=== PATIENT | male | born 1965 | race African-American/Black ===

== ENCOUNTER 2016-11-17 12:33 | Emergency (ER) | payer OTHER, MEDICARE ==
--- NOTE | 2016-11-17 13:44 | ER Document Report ---
ED Medical Screen (RME) - General Chief Complaint: High Blood Pressure Stated Complaint: BLOOD PRESSURE PROBLEMS Time Seen by Provider: 11/17/16 13:42 Mode of Arrival: Ambulatory Information source: Patient Notes: This is a 51-year-old male with a history of hypertension who presents with high blood pressure. He states that his tele-nurse called him regarding his blood pressure readings today and told him to come to the ER for evaluation. He is on multiple antihypertensive medications and reports compliance with these. He denies any chest pain or shortness of breath. No headache. No vision changes. I have greeted and performed a rapid initial assessment of this patient. A comprehensive ED assessment and evaluation of the patient, analysis of test results and completion of the medical decision making process will be conducted by additional ED providers. TRAVEL OUTSIDE OF THE [place] IN LAST 30 DAYS: No - Related Data Allergies/Adverse Reactions: No Known Allergies Allergy (Verified 11/17/16 12:41) Past Medical History - Social History Chew tobacco use (# tins/day): No Frequency of alcohol use: None Drug Abuse: None - Past Medical History Cardiac Medical History: Reports: Hx Congestive Heart Failure, Hx Hypercholesterolemia, Hx Hypertension Pulmonary Medical History: Reports: Hx Bronchitis, Hx Pneumonia Neurological Medical History: Reports: Hx Migraine Endocrine Medical History: Reports: Hx Diabetes Mellitus Type 2 Renal/ Medical History: Denies: Hx Peritoneal Dialysis Musculoskeltal Medical History: Reports Hx Arthritis Psychiatric Medical History: Reports: Hx Depression Surgical Hx: Negative Past Surgical History: Reports: Hx Orthopedic Surgery, Other - Nephrectomy - Immunizations Hx Diphtheria, Pertussis, Tetanus Vaccination: Yes Physical Exam - Vital signs Vitals: Temp Pulse Resp BP Pulse Ox 98.3 F 47 L 20 210/99 H 98 11/17/16 12:41 11/17/16 12:41 11/17/16 12:41 11/17/16 12:41 11/17/16 12:41 Course - Vital Signs Vital signs: Temp Pulse Resp BP Pulse Ox 98.3 F 47 L 20 210/99 H 98 11/17/16 12:41 11/17/16 12:41 11/17/16 12:41 11/17/16 12:41 11/17/16 12:41
[2016-11-17 14:05] LABS: ABSOLUTE BASOPHILS # (AUTO) 0.1 10^3/uL (0.0-0.2); ABSOLUTE EOSINOPHILS # (AUTO) 0.1 10^3/uL (0.0-0.6); ABSOLUTE LYMPHOCYTES (AUTO) 2.3 10^3/uL (0.5-4.7); ABSOLUTE MONOCYTES (AUTO) 0.9 10^3/uL (0.1-1.4); ABSOLUTE NEUT (AUTO) 3.7 10^3/uL (1.7-8.2); BASOPHILS % (AUTO) 0.9 % (0-2); EOSINOPHILS % (AUTO) 1.5 % (0-6); HEMATOCRIT 38.9 % (37.9-51.0); HEMOGLOBIN 12.6 g/dL (13.5-17.0); HGB HCT DIFFERENCE -1.1; LYMPHOCYTES % (AUTO) 32.6 % (13-45); MEAN CORPUSCULAR HGB CONC 32.5 g/dL (32.0-36.0); MEAN CORPUSCULAR VOLUME 95 fl (80-97); MONOCYTES % (AUTO) 13.1 % (3-13); RED BLOOD COUNT 4.08 10^6/uL (4.35-5.55); RED CELL DISTRIBUTION WIDTH 14.2 % (11.5-14.0); SEGMENTED NEUTROPHILS % (AUTO) 51.9 % (42-78); WHITE BLOOD COUNT 7.1 10^3/uL (4.0-10.5)
[2016-11-17] MEDS ORDERED: HYDRALAZINE HCL INJ/PF 20 MG/1 ML SDV IV ONE (14:20)
[2016-11-17 14:22] LABS: ALANINE AMINOTRANSFERASE 26 U/L (21-72); ALBUMIN 3.4 g/dL (3.5-5.0); ALKALINE PHOSPHATASE 58 U/L (38-126); ANION GAP 7 (5-19); ASPARTATE AMINO TRANSFERASE 19 U/L (17-59); BILIRUBIN,DIRECT 0.3 mg/dL (0.0-0.4); BILIRUBIN,TOTAL 1.6 mg/dL (0.2-1.3); BLOOD UREA NITROGEN 16 mg/dL (7-20); CALCIUM 9.1 mg/dL (8.4-10.2); CARBON DIOXIDE 28 mmol/L (22-30); CHLORIDE 107 mmol/L (98-107); CREATININE RESULT 1.33 mg/dL (0.52-1.25); GLUCOSE 104 mg/dL (75-110); POTASSIUM 3.9 mmol/L (3.6-5.0); SODIUM 141.9 mmol/L (137-145)
--- NOTE | 2016-11-17 14:34 | ER Document Report ---
ED General - General Chief Complaint: High Blood Pressure Stated Complaint: BLOOD PRESSURE PROBLEMS Time Seen by Provider: 11/17/16 13:42 Mode of Arrival: Ambulatory Information source: Patient Notes: 51 yr old male hx of hypertension on carvedilol, amlodipine, clonidine, losartan , furosemide presents iwth only concerns of high blood pressure. pt notes 17 pound weight gain in the past 2 weeks. pt denies any chest pain, sob, difficulty breathing . pt notes his hr is always in the mid 40s TRAVEL OUTSIDE OF THE [place] IN LAST 30 DAYS: No - HPI Onset: Other Onset/Duration: Persistent Quality of pain: No pain Severity: Mild Pain Level: Denies Associated symptoms: Other Exacerbated by: Denies Relieved by: Denies Similar symptoms previously: Yes Recently seen / treated by doctor: Yes - Related Data Allergies/Adverse Reactions: No Known Allergies Allergy (Verified 11/17/16 12:41) Past Medical History - General Information source: Patient - Social History Smoking Status: Never Smoker Cigarette use (# per day): No Chew tobacco use (# tins/day): No Smoking Education Provided: No Frequency of alcohol use: None Drug Abuse: None Family History: Hypertension Patient has suicidal ideation: No Patient has homicidal ideation: No - Past Medical History Cardiac Medical History: Reports: Hx Congestive Heart Failure, Hx Hypercholesterolemia, Hx Hypertension Pulmonary Medical History: Reports: Hx Bronchitis, Hx Pneumonia Neurological Medical History: Reports: Hx Migraine Endocrine Medical History: Reports: Hx Diabetes Mellitus Type 2 Renal/ Medical History: Denies: Hx Peritoneal Dialysis Musculoskeltal Medical History: Reports Hx Arthritis Psychiatric Medical History: Reports: Hx Depression Surgical Hx: Negative Past Surgical History: Reports: Hx Orthopedic Surgery, Other - Nephrectomy - Immunizations Hx Diphtheria, Pertussis, Tetanus Vaccination: Yes Review of Systems - Review of Systems Notes: REVIEW OF SYSTEMS: CONSTITUTIONAL : Denies fever, chills, or sweats. Denies recent illness. EENT: Denies eye, ear, throat, or mouth pain or symptoms. Denies nasal or sinus congestion or discharge. Denies throat, tongue, or mouth swelling or difficulty swallowing. CARDIOVASCULAR: Denies chest pain. Denies palpitations or racing or irregular heart beat. Denies ankle edema. RESPIRATORY: Denies cough, cold, or chest congestion. Denies shortness of breath, difficulty breathing, or wheezing. GASTROINTESTINAL: Denies abdominal pain or distention. Denies nausea, vomiting , or diarrhea. Denies blood in vomitus, stools, or per rectum. Denies black, tarry stools. Denies constipation. GENITOURINARY: Denies difficulty urinating, painful urination, burning, frequency, blood in urine, or discharge. MUSCULOSKELETAL: Denies back or neck pain or stiffness. Denies joint pain or swelling. SKIN: Denies rash, lesions or sores. HEMATOLOGIC : Denies easy bruising or bleeding. LYMPHATIC: Denies swollen, enlarged glands. NEUROLOGICAL: Denies confusion or altered mental status. Denies passing out or loss of consciousness. Denies dizziness or lightheadedness. Denies headache. Denies weakness or paralysis or loss of use of either side. Denies problems with gait or speech. Denies sensory loss, numbness, or tingling. Denies seizures. PSYCHIATRIC: Denies anxiety or stress. Denies depression, suicidal ideation, or homicidal ideation. ALL OTHER SYSTEMS REVIEWED AND NEGATIVE. Dictation was performed using [employer] voice recognition software PHYSICAL EXAMINATION: GENERAL: Well-appearing, well-nourished and in no acute distress. HEAD: Atraumatic, normocephalic. EYES: Pupils equal round and reactive to light, extraocular movements intact, sclera anicteric, conjunctiva are normal. ENT: Nares patent, oropharynx clear without exudates. Moist mucous membranes. NECK: Normal range of motion, supple without lymphadenopathy LUNGS: Breath sounds clear to auscultation bilaterally and equal. No wheezes rales or rhonchi. HEART: Regular rate and rhythm without murmurs ABDOMEN: Soft, nontender, nondistended abdomen. No guarding, no rebound. No masses appreciated. Musculoskeletal: Normal range of motion, no pitting or edema. No cyanosis. NEUROLOGICAL: Cranial nerves grossly intact. Normal speech, normal gait. Normal sensory, motor exams PSYCH: Normal mood, normal affect. SKIN: Warm, Dry, normal turgor, no rashes or lesions noted. Physical Exam - Vital signs Vitals: Temp Pulse Resp BP Pulse Ox 98.3 F 47 L 20 210/99 H 98 11/17/16 12:41 11/17/16 12:41 11/17/16 12:41 11/17/16 12:41 11/17/16 12:41 Course - Re-evaluation Re-evalutation: 11/17/16 16:46 pt had 3 episodes of urinary output, bp dropped as low as 160s, but did go back ot the 180s which is the goal of 20% decrease in the ED. I spoke with hospitalist who suggests use of hydralazine for home, pt is happy with this plan as long as patient is asymptomatic he is stable for discharge. After performing a Medical Screening Examination, I estimate there is LOW risk for RUPTURED ESOPHAGUS, PNEUMOTHORAX, PULMONARY EMBOLISM, ACUTE CORONARY SYNDROME, OR THORACIC AORTIC DISSECTION, thus I consider the discharge disposition reasonable. I have reevaluated this patient multiple times and no significant life threatening changes are noted. The patient and I have discussed the diagnosis and risks, and we agree with discharging home with close follow-up. We also discussed returning to the Emergency Department immediately if new or worsening symptoms occur. We have discussed the symptoms which are most concerning (e.g., bloody sputum, worsening pain or shortness of breath) that necessitate immediate return. - Vital Signs Vital signs: Temp Pulse Resp BP Pulse Ox 98.3 F 47 L 17 181/102 H 99 11/17/16 12:41 11/17/16 12:41 11/17/16 15:54 11/17/16 15:54 11/17/16 15:54 - Laboratory Result Diagrams: 11/17/16 13:50 11/17/16 13:50 Laboratory results interpreted by ks: 11/17/16 11/17/16 13:50 13:50 RBC 4.08 L Hgb 12.6 L RDW 14.2 H Monocytes % 13.1 H Creatinine 1.33 H Est GFR (Non-Af Amer) 56 L Total Bilirubin 1.6 H Albumin 3.4 L - EKG Interpretation by [facility] EKG shows normal: Sinus rhythm, Graham, Intervals, QRS Complexes Discharge - Discharge Clinical Impression: Essential hypertension Condition: Stable Disposition: HOME, SELF-CARE Instructions: High Blood Pressure, Requiring Treatment ([facility]) Prescriptions: Hydralazine HCl 25 mg PO Q8 #30 tablet Referrals: DAKOTA QUIROGA MD [Primary Care Provider] - Follow up tomorrow
[2016-11-17] MEDS ORDERED: NITROGLYCERIN 0.4 MG/TAB 25 TAB/BOTTLE SL ONE (15:38)
[2016-11-17 17:16] VITALS: BP 181/93
--- NOTE | 2016-11-17 22:38 | EKG REPORT ---
SEVERITY:- ABNORMAL ECG - SINUS BRADYCARDIA PROBABLE LEFT VENTRICULAR HYPERTROPHY : Confirmed by: Fadi Silva 17-Nov-2016 22:37:19
== END 2016-11-17 17:16 | disposition home or self-care (01) ==
LOC: ER 12:33
DX: I10 Essential (primary) hypertension (principal); R63.5 Abnormal weight gain; I50.9 Heart failure, unspecified; E78.00 Pure hypercholesterolemia, unspecified; I11.0 Hypertensive heart disease with heart failure; E11.9 Type 2 diabetes mellitus without complications; Z90.5 Acquired absence of kidney
CPT/HCPCS: 93005; 99284; 96374; 36415; 85025; 80053; 93010; J0360

== ENCOUNTER 2017-12-10 11:19 | Observation (INO) | payer OTHER, MEDICARE ==
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
[2017-12-10 12:21] LABS: ABSOLUTE BASOPHILS # (AUTO) 0.1 10^3/uL (0.0-0.2); ABSOLUTE EOSINOPHILS # (AUTO) 0.1 10^3/uL (0.0-0.6); ABSOLUTE LYMPHOCYTES (AUTO) 1.5 10^3/uL (0.5-4.7); ABSOLUTE MONOCYTES (AUTO) 1.2 10^3/uL (0.1-1.4); ABSOLUTE NEUT (AUTO) 5.9 10^3/uL (1.7-8.2); BASOPHILS % (AUTO) 0.7 % (0-2); EOSINOPHILS % (AUTO) 1.6 % (0-6); HEMATOCRIT 34.7 % (37.9-51.0); HEMOGLOBIN 11.7 g/dL (13.5-17.0); LYMPHOCYTES % (AUTO) 16.9 % (13-45); MEAN CORPUSCULAR HEMOGLOBIN 31.6 pg (27.0-33.4); MEAN CORPUSCULAR HGB CONC 33.7 g/dL (32.0-36.0); MEAN CORPUSCULAR VOLUME 94 fl (80-97); MONOCYTES % (AUTO) 13.5 % (3-13); PLATELET COUNT 197 10^3/uL (150-450); RED CELL DISTRIBUTION WIDTH 13.2 % (11.5-14.0); SEGMENTED NEUTROPHILS % (AUTO) 67.3 % (42-78); TOTAL CELLS COUNTED % (AUTO) 100 %; WHITE BLOOD COUNT 8.8 10^3/uL (4.0-10.5)
[2017-12-10 12:28] LABS: APPEARANCE,URINE CLEAR; BILIRUBIN,URINE NEGATIVE (NEGATIVE); COLOR,URINE YELLOW; GLUCOSE, URINE NEGATIVE (NEGATIVE); KETONES,URINE NEGATIVE (NEGATIVE); LEUKOCYTE ESTERASE,URINE NEGATIVE (NEGATIVE); NITRITE,URINE NEGATIVE (NEGATIVE); PROTEIN,URINE NEGATIVE (NEGATIVE); UROBILINOGEN,URINE NEGATIVE mg/dL (<2.0)
[2017-12-10 12:39] LABS: ANION GAP 14 (5-19); BLOOD UREA NITROGEN 42 mg/dL (7-20); CALCIUM 9.3 mg/dL (8.4-10.2); CARBON DIOXIDE 28 mmol/L (22-30); CHLORIDE 104 mmol/L (98-107); GLUCOSE 126 mg/dL (75-110); POTASSIUM 3.4 mmol/L (3.6-5.0); SODIUM 145.5 mmol/L (137-145)
[2017-12-10] MEDS ORDERED: NORMAL SALINE 1000 ML 1,000 ML IV ONE (12:45)
[2017-12-10] MEDS ORDERED: POTASSIUM CHLORIDE 10 MEQ CAPSULE.ER PO ONE ×2 (12:46→17:00)
--- NOTE | 2017-12-10 15:02 | RADIOLOGY REPORT (SQ) ---
EXAM DESCRIPTION: U/S RETROPERITON LTD COMPLETED DATE/TIME: 12/10/2017 2:49 pm REASON FOR STUDY: right kidney only, JAVIER COMPARISON: CT angio chest 01/08/2016 TECHNIQUE: Dynamic and static grayscale images acquired of the kidneys and bladder and recorded on P ACS. Additional selected color Doppler and spectral images recorded. LIMITATIONS: None. FINDINGS: RIGHT KIDNEY: Normal size, 13.6 cm in length. Normal echogenicity. No solid or suspic ious masses. No hydronephrosis. No calcifications. LEFT KIDNEY: Post left nephrectomy. BLADDER: No masses. OTHER FINDINGS: No other significant finding. IMPRESSION: Post left nephrectomy. No right-sided hydronephrosis, cysts, stones, or masses. TECHNICAL DOCUMENTATION: JOB ID: [id number] [employer]- All Rights Reserved Reading location - IP/workstation name: [email or web address]
--- NOTE | 2017-12-10 15:07 | ER Document Report ---
ED General - General Chief Complaint: Abnormal Lab Results Stated Complaint: ABNORMAL LABS Time Seen by Provider: 12/10/17 11:28 Mode of Arrival: Ambulatory Information source: Patient Notes: Patient is a 52-year-old male who presents to the ER today because the [facility], his primary care, called him and told him that the labs they lori the other day came back with an elevated BUN and creatinine, low potassium and he needed to go to the ER to be evaluated. 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 He is not on dialysis and has no history of having any kidney function issues. No history of kidney stones, denies any fevers, chills, pain anywhere, burning with urination or blood in his urine. He does not work outside and states that he tries to stay out of the heat and has been drinking plenty of water he thought. TRAVEL OUTSIDE OF THE [place] IN LAST 30 DAYS: No - Related Data Allergies/Adverse Reactions: No Known Allergies Allergy (Verified 11/17/16 12:41) Past Medical History - General Information source: Patient - Social History Smoking Status: Never Smoker Chew tobacco use (# tins/day): No Frequency of alcohol use: None Drug Abuse: None Family History: Hypertension Patient has suicidal ideation: No Patient has homicidal ideation: No - Past Medical History Cardiac Medical History: Reports: Hx Congestive Heart Failure, Hx Hypercholesterolemia, Hx Hypertension Pulmonary Medical History: Reports: Hx Bronchitis, Hx Pneumonia Neurological Medical History: Reports: Hx Migraine Endocrine Medical History: Reports: Hx Diabetes Mellitus Type 2 Renal/ Medical History: Denies: Hx Peritoneal Dialysis Musculoskeltal Medical History: Reports Hx Arthritis Psychiatric Medical History: Reports: Hx Depression Past Surgical History: Reports: Hx Orthopedic Surgery, Other - Nephrectomy - Immunizations Hx Diphtheria, Pertussis, Tetanus Vaccination: Yes Review of Systems - Review of Systems Constitutional: No symptoms reported EENT: No symptoms reported Cardiovascular: No symptoms reported Respiratory: No symptoms reported Gastrointestinal: No symptoms reported Genitourinary: See HPI Male Genitourinary: No symptoms reported Musculoskeletal: No symptoms reported Skin: No symptoms reported Hematologic/Lymphatic: No symptoms reported Neurological/Psychological: No symptoms reported Physical Exam - Vital signs Vitals: Temp Pulse Resp BP Pulse Ox 98.6 F 63 20 134/66 H 98 12/10/17 11:25 12/10/17 11:25 12/10/17 11:25 12/10/17 11:25 12/10/17 11:25 - Notes Notes: PHYSICAL EXAMINATION: GENERAL: Well-appearing and in no acute distress. HEAD: Atraumatic, normocephalic. EYES: Pupils equal round and reactive to light, extraocular movements intact, sclera anicteric, conjunctiva are normal. ENT: ear canals without erythema or foreign body, TMs pearly jaeger with good bony landmarks, nares patent, oropharynx clear without exudates. Moist mucous membranes. NECK: Normal range of motion, supple without lymphadenopathy LUNGS: CTAB and equal. No wheezes rales or rhonchi. HEART: Regular rate and rhythm without murmurs ABDOMEN: Soft, no tenderness. No guarding, no rebound BACK: no vertebral tenderness, normal ROM GI/: no CVA tenderness EXTREMITIES: Normal range of motion, no pitting edema. No cyanosis. NEUROLOGICAL: Cranial nerves grossly intact. Normal sensory/motor exams. PSYCH: Normal mood, normal affect. SKIN: Warm, Dry, normal turgor, no rashes or lesions noted Course - Re-evaluation Re-evalutation: 12/10/17 17:23 Patient's BUN is 42, creatinine of 2.37, I do not have anything recent to compare this to, the last labs I have over a year ago had a normal BUN and only a slightly elevated creatinine of 1.3. Potassium is mildly low at 3.4. Patient has a normal renal ultrasound today with no sign of stone or hydronephrosis. No sign of infection on urinalysis. Dr. Briceño accepts patient at this time for admission. - Vital Signs Vital signs: Temp Pulse Resp BP Pulse Ox 97.7 F 59 L 12 133/79 H 98 12/10/17 16:32 12/10/17 16:32 12/10/17 16:32 12/10/17 16:32 12/10/17 16:32 - Laboratory Result Diagrams: 12/10/17 12:00 12/10/17 12:00 Laboratory results interpreted by me: 12/10/17 12/10/17 12/10/17 12:00 12:00 12:00 RBC 3.70 L Hgb 11.7 L Hct 34.7 L Monocytes % 13.5 H Sodium 145.5 H Potassium 3.4 L BUN 42 H Creatinine 2.37 H Est GFR ( Amer) 35 L Est GFR (Non-Af Amer) 29 L Glucose 126 H Urine Ascorbic Acid 20 H Discharge - Discharge Clinical Impression: JAVIER (acute kidney injury) Condition: Stable Disposition: ADMITTED INPATIENT Admitting Provider: Hospitalist - [facility] Unit Admitted: Medical Floor
[2017-12-10] MEDS ORDERED: ONDANSETRON 4 MG TAB.RAPDIS PO PRN (15:41)
[2017-12-10] MEDS ORDERED: DEXTROSE 40% GEL 15 GM TUBE PO PRN ×2 (15:48)
[2017-12-10] MEDS ORDERED: GLUCAGON,HUMAN RECOMB 1 MG INJ IM PRN (15:48)
[2017-12-10] MEDS ORDERED: DEXTROSE 50%-WATER 25 GM/50 ML DISP.SYRIN IV PRN ×2 (15:48)
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
[2017-12-10] MEDS: NORMAL SALINE 1000 ML 1,000 ML IV PRN ×2 (16:57→22:53)
[2017-12-10] MEDS: HEPARIN SOD (PORCINE) 5,000 UNIT/ML 1 ML SYRINGE SUBCUT SCH (22:53)
[2017-12-10] MEDS: INSULIN LISPRO 100 UNIT/ML 3 ML VIAL SUBCUT PRN (22:57)
--- NOTE | 2017-12-11 01:33 | RADIOLOGY REPORT (SQ) ---
EXAM DESCRIPTION: XR TOES 2 OR MORE VIEWS COMPLETED DATE/TME: 12/10/2017 00:00 CLINICAL HISTORY: 52 years, Male, possible fracture COMPARISON: None. NUMBER OF VIEWS: 3 LIMITATIONS: None. FINDINGS: Intra-articular curvilinear defect at the plantar aspect of the left first distal phalangeal base seen on the lateral view only may indicate fracture. Mild osteoarthritis. Moderate plantar fascial enthesophyte. IMPRESSION: Fracture/defect at the base of the left first distal phalanx.
[2017-12-11 05:53] LABS: ANION GAP 10 (5-19); BLOOD UREA NITROGEN 38 mg/dL (7-20); CALCIUM 8.7 mg/dL (8.4-10.2); CARBON DIOXIDE 28 mmol/L (22-30); CHLORIDE 110 mmol/L (98-107); GLUCOSE 116 mg/dL (75-110); POTASSIUM 3.6 mmol/L (3.6-5.0); SODIUM 147.6 mmol/L (137-145)
[2017-12-11] MEDS: LANSOPRAZOLE 30 MG TAB.RAP.DR PO SCH (06:56)
[2017-12-11] MEDS: HEPARIN SOD (PORCINE) 5,000 UNIT/ML 1 ML SYRINGE SUBCUT SCH ×3 (06:56→21:22)
--- NOTE | 2017-12-11 08:53 | PDOC PROGRESS REPORT ---
Subjective Progress Note for:: 12/11/17 Subjective:: I seen patient resting in bed comfortably. He is awake alert and oriented. There is no report of nausea, vomiting, diarrhea or abdominal pain. He is eating well and tolerates well. His kidney function is improving evidenced by his creatinine trended down from 2.37-1.96. Reason For Visit: ACUTE KIDNEY INJURY,HYPOKALEMIA Physical Exam Vital Signs: Temp Pulse Resp BP Pulse Ox 97.9 F 48 L 16 119/73 98 12/11/17 08:11 12/11/17 08:11 12/11/17 08:11 12/11/17 08:11 12/11/17 08:11 Intake & Output 12/10/17 12/11/17 12/12/17 06:59 06:59 06:59 Intake Total 1025 Output Total 1230 Balance -205 Weight 141.8 kg Results Laboratory Results: 12/11/17 03:58 12/10/17 12/11/17 17:00 03:58 Sodium 147.6 H Potassium 3.6 Chloride 110 H Carbon Dioxide 28 Anion Gap 10 BUN 38 H Creatinine 1.96 H Est GFR ( Amer) 44 L Est GFR (Non-Af Amer) 36 L Glucose 116 H Calcium 8.7 Phosphorus 3.4 Impressions: Toe X-Ray 12/10/17 00:00 IMPRESSION: Fracture/defect at the base of the left first distal phalanx. Renal Ultrasound 12/10/17 12:54 IMPRESSION: Post left nephrectomy. No right-sided hydronephrosis, cysts, stones, or masses. Assessment & Plan - Diagnosis (1) Acute renal failure Qualifiers: Acute renal failure type: unspecified Qualified Code(s): N17.9 - Acute kidney failure, unspecified Is this a current diagnosis for this admission?: Yes Plan: Improving renal function. Continue gentle hydration (2) Hypokalemia Is this a current diagnosis for this admission?: Yes Plan: Resolved (3) Type 2 diabetes mellitus Is this a current diagnosis for this admission?: Yes Plan: Well-controlled. His hemoglobin A1c is 5.6 (4) Hyperlipidemia Qualifiers: Hyperlipidemia type: unspecified Qualified Code(s): E78.5 - Hyperlipidemia , unspecified Is this a current diagnosis for this admission?: Yes Plan: Continue current regimen.
[2017-12-11] MEDS: NORMAL SALINE 1000 ML 1,000 ML IV PRN (21:35)
[2017-12-11] MEDS: INSULIN LISPRO 100 UNIT/ML 3 ML VIAL SUBCUT PRN (21:38)
[2017-12-12 05:18] LABS: ANION GAP 10 (5-19); BLOOD UREA NITROGEN 27 mg/dL (7-20); CALCIUM 8.6 mg/dL (8.4-10.2); CARBON DIOXIDE 25 mmol/L (22-30); CHLORIDE 111 mmol/L (98-107); GLUCOSE 155 mg/dL (75-110); POTASSIUM 3.7 mmol/L (3.6-5.0); SODIUM 146.3 mmol/L (137-145)
[2017-12-12] MEDS: HEPARIN SOD (PORCINE) 5,000 UNIT/ML 1 ML SYRINGE SUBCUT SCH (05:46)
[2017-12-12] MEDS: LANSOPRAZOLE 30 MG TAB.RAP.DR PO SCH (05:46)
[2017-12-12 08:16] VITALS: BP 144/83
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
== END 2017-12-12 11:20 | disposition home or self-care (01) ==
LOC: ER 11:19 → INTOOBSV 15:20 → EH 15:20 → 5 16:27
PROVIDERS: ADMIT Internal Medicine; ATTEND Internal Medicine
DX: N17.9 Acute kidney failure, unspecified (principal); E87.6 Hypokalemia; E11.9 Type 2 diabetes mellitus without complications; E78.5 Hyperlipidemia, unspecified; I11.0 Hypertensive heart disease with heart failure; I50.9 Heart failure, unspecified; Z90.81 Acquired absence of spleen; Z90.5 Acquired absence of kidney
CPT/HCPCS: 99285; 96360; 36415 ×3; 82962 ×3; 83735; 84100; 85025; 80048 ×3; 81001; 83036; 73660; 76775; G0378 ×4; J1644 ×3; J1815; J3490 ×3; J7030 ×2

== ENCOUNTER 2018-09-26 17:10 | Emergency (ER) | payer OTHER, MEDICARE ==
--- NOTE | 2018-09-26 18:04 | ER Document Report ---
ED Medical Screen (RME) - General Chief Complaint: Leg Pain Stated Complaint: LEFT LEG PAIN Time Seen by Provider: 09/26/18 17:54 Primary Care Provider: DAKOTA QUIROGA MD [Primary Care Provider] - Follow up as needed Mode of Arrival: Ambulatory Information source: Patient TRAVEL OUTSIDE OF THE [place] IN LAST 30 DAYS: No - HPI Patient complains to provider of: Left leg pain Notes: 09/26/18 18:00 Patient here with complaints of left leg pain, redness, swelling. The patient had left knee replacement on September 12. Last few days he has noticed some swelling, redness and pain in the left lower extremity. He has had cellulitis in the past. No fever. No chest pain or shortness of breath. No numbness, tingling, weakness. He states that his knee feels great. Exam No distress, nontoxic-appearing. Lungs clear and equal throughout. Heart sounds normal. Patient with swelling to the left lower extremity with redness to the distal aspect of the tib-fib area. Knee with no redness or increased heat to touch. Normal pulse and sensation distally. Plan CBC, CMP, coags, x-ray of the knee, venous Doppler An initial examination was made on the patient as part of the triage process, and it was determined a more comprehensive evaluation was necessary. Initial labs were ordered and patient was transferred to another provider in the ED who assumed care and finished evaluation and plan. - Related Data Allergies/Adverse Reactions: lisinopril Allergy (Verified 09/26/18 17:12) Past Medical History - Past Medical History Cardiac Medical History: Reports: Hx Congestive Heart Failure, Hx Hypercholesterolemia, Hx Hypertension Pulmonary Medical History: Reports: Hx Bronchitis, Hx Pneumonia Neurological Medical History: Reports: Hx Migraine Endocrine Medical History: Reports: Hx Diabetes Mellitus Type 2 Renal/ Medical History: Denies: Hx Peritoneal Dialysis Musculoskeltal Medical History: Reports Hx Arthritis Psychiatric Medical History: Reports: Hx Depression Past Surgical History: Reports: Hx Orthopedic Surgery, Other - Nephrectomy - Immunizations Hx Diphtheria, Pertussis, Tetanus Vaccination: Yes Physical Exam - Vital signs Vitals: Temp Pulse Resp BP Pulse Ox 97.8 F 66 18 159/82 H 96 09/26/18 17:16 09/26/18 17:16 09/26/18 17:16 09/26/18 17:16 09/26/18 17:16 Course - Vital Signs Vital signs: Temp Pulse Resp BP Pulse Ox 97.8 F 66 18 159/82 H 96 09/26/18 17:16 09/26/18 17:16 09/26/18 17:16 09/26/18 17:16 09/26/18 17:16 Doctor's Discharge - Discharge Referrals: DAKOTA QUIROGA MD [Primary Care Provider] - Follow up as needed
[2018-09-26 19:03] LABS: ABSOLUTE BASOPHILS # (AUTO) 0.1 10^3/uL (0.0-0.2); ABSOLUTE EOSINOPHILS # (AUTO) 0.3 10^3/uL (0.0-0.6); ABSOLUTE LYMPHOCYTES (AUTO) 1.5 10^3/uL (0.5-4.7); ABSOLUTE MONOCYTES (AUTO) 1.2 10^3/uL (0.1-1.4); ABSOLUTE NEUT (AUTO) 7.3 10^3/uL (1.7-8.2); BASOPHILS % (AUTO) 0.8 % (0-2); EOSINOPHILS % (AUTO) 2.6 % (0-6); HEMATOCRIT 27.4 % (37.9-51.0); HEMOGLOBIN 9.3 g/dL (13.5-17.0); LYMPHOCYTES % (AUTO) 14.8 % (13-45); MEAN CORPUSCULAR HEMOGLOBIN 31.9 pg (27.0-33.4); MEAN CORPUSCULAR VOLUME 94 fl (80-97); MONOCYTES % (AUTO) 11.2 % (3-13); PLATELET COUNT 304 10^3/uL (150-450); PROTHROMBIN TIME 13.7 SEC (11.4-15.4); RED BLOOD COUNT 2.92 10^6/uL (4.35-5.55); RED CELL DISTRIBUTION WIDTH 14.2 % (11.5-14.0); SEGMENTED NEUTROPHILS % (AUTO) 70.6 % (42-78); TOTAL CELLS COUNTED % (AUTO) 100 %; WHITE BLOOD COUNT 10.3 10^3/uL (4.0-10.5)
[2018-09-26 19:04] LABS: PARTIAL THROMBOPLASTIN TIME 31.3 SEC (23.5-35.8)
[2018-09-26 19:21] LABS: ALANINE AMINOTRANSFERASE 24 U/L (21-72); ALBUMIN 3.5 g/dL (3.5-5.0); ALKALINE PHOSPHATASE 73 U/L (38-126); ANION GAP 5 (5-19); ASPARTATE AMINO TRANSFERASE 23 U/L (17-59); BILIRUBIN,DIRECT 0.3 mg/dL (0.0-0.4); BILIRUBIN,TOTAL 0.9 mg/dL (0.2-1.3); BLOOD UREA NITROGEN 32 mg/dL (7-20); CALCIUM 9.5 mg/dL (8.4-10.2); CARBON DIOXIDE 27 mmol/L (22-30); CHLORIDE 107 mmol/L (98-107); GLUCOSE 157 mg/dL (75-110); POTASSIUM 4.4 mmol/L (3.6-5.0); SODIUM 139.1 mmol/L (137-145); TOTAL PROTEIN 7.3 g/dL (6.3-8.2)
--- NOTE | 2018-09-26 19:28 | RADIOLOGY REPORT (SQ) ---
EXAM DESCRIPTION: KNEE LEFT 4 VIEW COMPLETED DATE/TIME: 09/26/2018 6:29 pm REASON FOR STUDY: leg swelling, recent knee replacemtn COMPARISON: None. EXAM PARAMETERS: NUMBER OF VIEWS: Four views. TECHNIQUE: AP, lateral and both oblique radiographic images acquired of the left knee. LIMITATIONS: None. FINDINGS: MINERALIZATION: Normal. BONES: No acute fracture or dislocation. No worrisome bone lesions. JOINTS: Moderate effusion. SOFT TISSUES: Moderate soft tissue swelling. No radiopaque foreign body. OTHER: No other significant finding. IMPRESSION: NO FRACTURE. Total knee arthroplasty hardware appears in expected position. Moderate joint effusion and soft tissue swelling. Exclude infection clinically. TECHNICAL DOCUMENTATION: JOB ID: [id number] [id number] 2010 [employer]- All Rights Reserved Reading location - IP/workstation name: [email or web address]
[2018-09-26] MEDS ORDERED: DOXYCYCLINE HYCLATE 100 MG TABLET PO ONE (22:22)
--- NOTE | 2018-09-26 22:24 | ER Document Report ---
ED General - General Chief Complaint: Leg Pain Stated Complaint: LEFT LEG PAIN Time Seen by Provider: 09/26/18 17:54 Primary Care Provider: DAKOTA QUIROGA MD [NO LOCAL MD] - Follow up in 3-5 days Mode of Arrival: Ambulatory Notes: Patient is a 53-year-old male with recent total knee arthroplasty that presents to the emergency department for chief complaint of left leg redness. Patient states that he noticed last night some redness in his left lower leg, and it was tender to palpate and felt warm so he decided come the emergency department to have this evaluated. He has a history of cellulitis in the past and was concerned that was going on. He denies noting any redness over the knee itself, he does have a silver dressing in place, but denied having any swelling or new pain in the left knee where his total knee arthroplasty was. He denies any fevers, chills, night sweats, nausea, vomiting, abdominal pain, chest pain or shortness of breath. No prior history of DVT or PE. Past Medical History: Hypertension, diabetes mellitus, chronic kidney disease, osteoarthritis Past Surgical History: Total knee arthroplasty, nephrectomy, splenectomy Social History: Denies tobacco, alcohol or drug use. Family History: Reviewed and noncontributory for presenting illness Allergies: Reviewed, see documented allergy list. REVIEW OF SYSTEMS: Other than noted above, the 12 point review of systems was reviewed with the patient and were negative, all pertinent findings are included in the HPI. PHYSICAL EXAMINATION: Vital signs reviewed, nursing noted reviewed. GENERAL: Well-appearing, well-nourished and in no acute distress. HEAD: Atraumatic, normocephalic. EYES: Eyes appear normal, extraocular movements intact, sclera anicteric, conjunctiva are normal. ENT: nares patent, oropharynx clear without exudates. Moist mucous membranes. NECK: Normal range of motion, supple without lymphadenopathy LUNGS: Breath sounds clear to auscultation bilaterally and equal. No wheezes rales or rhonchi. HEART: Regular rate and rhythm without murmurs ABDOMEN: Soft, nontender, normoactive bowel sounds. No rebound, guarding, or rigidity. No masses appreciated. EXTREMITIES: Nontender, good range of motion, venous stasis changes noted bilaterally in the lower extremities, there is redness and erythema noted to the left leg anteriorly, tenderness to palpation of the area with trace edema bilaterally, there is a silver dressing in place of the patient's left total knee Darryl plasty, there is no erythema or streaking towards the patient's knee, no lymphangitis. The rest the patient's extremity exam is grossly unremarkable. NEUROLOGICAL: No focal neurological deficits. Moves all extremities spontaneously Motor and sensory grossly intact on exam. PSYCH: Normal mood, normal affect. SKIN: Warm, Dry, normal turgor, no rashes or lesions noted on exposed skin TRAVEL OUTSIDE OF THE [place] IN LAST 30 DAYS: No - Related Data Allergies/Adverse Reactions: lisinopril Allergy (Verified 09/26/18 17:12) Past Medical History - General Information source: Patient - Social History Smoking Status: Never Smoker Chew tobacco use (# tins/day): No Frequency of alcohol use: None Drug Abuse: None Family History: Hypertension Patient has suicidal ideation: No Patient has homicidal ideation: No - Past Medical History Cardiac Medical History: Reports: Hx Congestive Heart Failure, Hx Hypercholesterolemia, Hx Hypertension Pulmonary Medical History: Reports: Hx Bronchitis, Hx Pneumonia Neurological Medical History: Reports: Hx Migraine Endocrine Medical History: Reports: Hx Diabetes Mellitus Type 2 Renal/ Medical History: Denies: Hx Peritoneal Dialysis Musculoskeletal Medical History: Reports Hx Arthritis Psychiatric Medical History: Reports: Hx Depression Past Surgical History: Reports: Hx Orthopedic Surgery, Other - Nephrectomy - Immunizations Hx Diphtheria, Pertussis, Tetanus Vaccination: Yes Physical Exam - Vital signs Vitals: Temp Pulse Resp BP Pulse Ox 97.8 F 66 18 159/82 H 96 09/26/18 17:16 09/26/18 17:16 09/26/18 17:16 09/26/18 17:16 09/26/18 17:16 Course - Re-evaluation Re-evalutation: Patient seen and examined vital signs reviewed. Laboratory data and/or imaging were ordered as appropriate for the patient's presenting symptoms and complaint, with consideration of any critical or life threatening conditions that may be associated with their obtained history and exam as noted above. Patient was treated with p.o. doxycycline Results were reviewed when available and demonstrated no leukocytosis, mild anemia, chronic for this patient, creatinine appears to be at this patient's baseline, duplex imaging, is negative for DVT, x-ray is unremarkable The patient was re-evaluated and was stable Evaluation was most consistent with left lower extremity cellulitis Results were discussed with the patient at this point, after careful consideration I feel that that patient can be discharged from the emergency department, the patient was educated treatments and reasons to return to the emergency department based on their presumed diagnosis as noted above, they were advised to followup with a primary care physician in 2-3 days. Patient was agreeable to plan of care. *Note is created using voice recognition software and may contain spelling, syntax or grammatical errors. Laboratory 09/26/18 09/26/18 09/26/18 18:24 18:24 18:24 WBC 10.3 RBC 2.92 L Hgb 9.3 L Hct 27.4 L MCV 94 MCH 31.9 MCHC 34.0 RDW 14.2 H Plt Count 304 Seg Neutrophils % 70.6 Lymphocytes % 14.8 Monocytes % 11.2 Eosinophils % 2.6 Basophils % 0.8 Absolute Neutrophils 7.3 Absolute Lymphocytes 1.5 Absolute Monocytes 1.2 Absolute Eosinophils 0.3 Absolute Basophils 0.1 PT 13.7 INR 1.00 APTT 31.3 Sodium 139.1 Potassium 4.4 Chloride 107 Carbon Dioxide 27 Anion Gap 5 BUN 32 H Creatinine 2.04 H Est GFR ( Amer) 41 L Est GFR (Non-Af Amer) 34 L Glucose 157 H Calcium 9.5 Total Bilirubin 0.9 Direct Bilirubin 0.3 Neonat Total Bilirubin Not Reportable Neonat Direct Bilirubin Not Reportable Neonat Indirect Bili Not Reportable AST 23 ALT 24 Alkaline Phosphatase 73 Total Protein 7.3 Albumin 3.5 Knee X-Ray 09/26/18 17:58 IMPRESSION: NO FRACTURE. Total knee arthroplasty hardware appears in expected position. Moderate joint effusion and soft tissue swelling. Exclude infection clinically. - Vital Signs Vital signs: Temp Pulse Resp BP Pulse Ox 98.6 F 65 15 156/82 H 100 09/26/18 22:32 09/26/18 22:32 09/26/18 22:32 09/26/18 22:32 09/26/18 22:32 - Laboratory Result Diagrams: 09/26/18 18:24 09/26/18 18:24 Laboratory results interpreted by me: 09/26/18 09/26/18 18:24 18:24 RBC 2.92 L Hgb 9.3 L Hct 27.4 L RDW 14.2 H BUN 32 H Creatinine 2.04 H Est GFR ( Amer) 41 L Est GFR (Non-Af Amer) 34 L Glucose 157 H Discharge - Discharge Clinical Impression: Cellulitis Qualifiers: Site of cellulitis: extremity Site of cellulitis of extremity: lower extremity Laterality: left Qualified Code(s): L03.116 - Cellulitis of left lower limb Condition: Stable Disposition: HOME, SELF-CARE Instructions: Cellulitis ([facility]) Additional Instructions: Please complete the entire course of antibiotics as prescribed, if you notice that it is worsening, or not improving over the next 2 days, please return to the emergency department sooner. Please follow-up with your orthopedic surgeon as scheduled tomorrow. Prescriptions: Doxycycline Hyclate 100 mg PO BID #20 capsule Referrals: DAKOTA QUIROGA MD [NO LOCAL MD] - Follow up in 3-5 days
[2018-09-26 22:35] VITALS: BP 156/82
--- NOTE | 2018-09-27 09:12 | XCELERA REPORT ---
[address] [place] [facility] [address] Lower Extremity Venous Evaluation Procedure: Color flow and duplex imaging of the veins of the left lower extremity as well as the right Common Femoral vein. Right Sided Venous Evaluation The right common femoral vein is fully compressible. Spontaneous and phasic flow is present in the right common femoral vein. Left Sided Venous Evaluation Distal Femoral vein not well seen. Normal vessel filling wall to wall, compression and augmentation as well as Colour flow down to the infrageniculate veins. Interpretation Summary No duplex evidence of DVT or obstruction in the left lower extremity nor in the right Common Femoral vein. Limitations as noted. Name: INA FIGUEROA Age: 53 yrs Gender: Male : 1965 Patient Status: Emergency Patient Location: ER Study Date: 09/26/2018 06:58 PM Reason For Study: left leg swelling a dn pain, recent surgery Ordering Physician: CHIQUI MEREDITH Performed By: Susan Edmondson : CHIQUI MEREDITH > Olegario Morocho
== END 2018-09-26 22:33 | disposition home or self-care (01) ==
LOC: ER 17:10
DX: L03.116 Cellulitis of left lower limb (principal); E11.9 Type 2 diabetes mellitus without complications; I10 Essential (primary) hypertension; Z96.652 Presence of left artificial knee joint; Z88.8 Allergy status to other drugs, medicaments and biological substances; D64.9 Anemia, unspecified; Z90.5 Acquired absence of kidney; Z90.81 Acquired absence of spleen
CPT/HCPCS: 36415; 80053; 85025; 85610; 85730; 93971; 99284

== ENCOUNTER 2019-12-28 11:15 | Emergency (ER) | payer OTHER, MEDICARE ==
[2019-12-28] MEDS ORDERED: ASPIRIN 81 MG TABLET, CHEWABLE PO ONE (11:29)
--- NOTE | 2019-12-28 11:32 | ER Document Report ---
ED Medical Screen (RME) - General Chief Complaint: Irregular Pulse Stated Complaint: IRREGULAR HEART RATE Time Seen by Provider: 12/28/19 11:26 Primary Care Provider: ATILIO SONG [Primary Care Provider] - Follow up as needed Mode of Arrival: Ambulatory Information source: Patient Notes: 54-year-old male presented to ED for atrial fibrillation states for about 3 or 4 months off and on. He states he has a iWatch that shows him his heart rate and we will do an EKG. He states that he has been telling him he was in A. fib and the doctor was told him that was just his watch so today when he went to the doctor's office he told me it was shown him there was in A. fib right now so the doctor did an EKG and sure enough he was in A. fib so*medical doctor sent him to the emergency room right away. 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 I have greeted and performed a rapid initial assessment of this patient. A comprehensive ED assessment and evaluation of the patient, analysis of test results and completion of medical decision making process will be conducted by an additional ED providers. TRAVEL OUTSIDE OF THE [place] IN LAST 30 DAYS: No - Related Data Allergies/Adverse Reactions: lisinopril Allergy (Verified 09/26/18 17:12) Past Medical History - Past Medical History Cardiac Medical History: Reports: Hx Congestive Heart Failure, Hx Hypercholeste rolemia, Hx Hypertension Pulmonary Medical History: Reports: Hx Bronchitis, Hx Pneumonia Neurological Medical History: Reports: Hx Migraine Endocrine Medical History: Reports: Hx Diabetes Mellitus Type 2 Renal/ Medical History: Denies: Hx Peritoneal Dialysis Musculoskeltal Medical History: Reports Hx Arthritis Psychiatric Medical History: Reports: Hx Depression Past Surgical History: Reports: Hx Orthopedic Surgery, Other - Nephrectomy - Immunizations Hx Diphtheria, Pertussis, Tetanus Vaccination: Yes Physical Exam - Vital signs Vitals: Temp Pulse Resp BP Pulse Ox 98.6 F 67 21 H 150/94 H 99 12/28/19 11:23 12/28/19 11:23 12/28/19 11:23 12/28/19 11:12/28/19 11:23 Course - Vital Signs Vital signs: Temp Pulse Resp BP Pulse Ox 98.6 F 67 21 H 150/94 H 99 12/28/19 11:23 12/28/19 11:23 12/28/19 11:23 12/28/19 11:23 12/28/19 11:23 Doctor's Discharge - Discharge [facility]errals: [facility] [Primary Care [facility]] - Follow up as needed
[2019-12-28 12:14] LABS: INTERNATIONAL RATION (INR) 1.04; PROTHROMBIN TIME 13.6 SEC (11.4-15.4)
[2019-12-28 12:18] LABS: APPEARANCE,URINE CLEAR; BILIRUBIN,URINE NEGATIVE (NEGATIVE); COLOR,URINE YELLOW; GLUCOSE, URINE >=500 mg/dL (NEGATIVE); KETONES,URINE NEGATIVE (NEGATIVE); PROTEIN,URINE NEGATIVE (NEGATIVE); URINE SPECIFIC GRAVITY 1.012; UROBILINOGEN,URINE NEGATIVE mg/dL (<2.0)
[2019-12-28 12:20] LABS: ABSOLUTE BASOPHILS # (AUTO) 0.1 10^3/uL (0.0-0.2); ABSOLUTE EOSINOPHILS # (AUTO) 0.1 10^3/uL (0.0-0.6); ABSOLUTE LYMPHOCYTES (AUTO) 1.8 10^3/uL (0.5-4.7); ABSOLUTE MONOCYTES (AUTO) 1.4 10^3/uL (0.1-1.4); ABSOLUTE NEUT (AUTO) 4.2 10^3/uL (1.7-8.2); BASOPHILS % (AUTO) 0.7 % (0-2); EOSINOPHILS % (AUTO) 1.9 % (0-6); HEMATOCRIT 43.4 % (37.9-51.0); HEMOGLOBIN 14.5 g/dL (13.5-17.0); LYMPHOCYTES % (AUTO) 23.3 % (13-45); MEAN CORPUSCULAR HEMOGLOBIN 31.5 pg (27.0-33.4); MEAN CORPUSCULAR HGB CONC 33.4 g/dL (32.0-36.0); MEAN CORPUSCULAR VOLUME 94 fl (80-97); MONOCYTES % (AUTO) 18.3 % (3-13); PLATELET COUNT 202 10^3/uL (150-450); RED CELL DISTRIBUTION WIDTH 14.3 % (11.5-14.0); SEGMENTED NEUTROPHILS % (AUTO) 55.8 % (42-78); TOTAL CELLS COUNTED % (AUTO) 100 %; WHITE BLOOD COUNT 7.6 10^3/uL (4.0-10.5)
[2019-12-28 12:25] LABS: ALKALINE PHOSPHATASE 59 U/L (38-126); ANION GAP 8 (5-19); ASPARTATE AMINO TRANSFERASE 23 U/L (17-59); BILIRUBIN,DIRECT 0.2 mg/dL (0.0-0.4); BLOOD UREA NITROGEN 28 mg/dL (7-20); CALCIUM 9.4 mg/dL (8.4-10.2); CARBON DIOXIDE 26 mmol/L (22-30); CHLORIDE 106 mmol/L (98-107); CREATINE KINASE 224 U/L (55-170); GLUCOSE 114 mg/dL (75-110); TOTAL PROTEIN 8.1 g/dL (6.3-8.2)
--- NOTE | 2019-12-28 12:27 | RADIOLOGY REPORT (SQ) ---
EXAM DESCRIPTION: CHEST 2 VIEWS IMAGES COMPLETED DATE/TIME: 12/28/2019 10:57 am REASON FOR STUDY: Atrial fib noted on his watch then by . COMPARISON: Chest radiograph 01/16/2016. EXAM PARAMETERS: NUMBER OF VIEWS: two views TECHNIQUE: Digital Frontal and Lateral radiographic views of the chest acquired. RADIATION DOSE: NA LIMITATIONS: none FINDINGS: LUNGS AND PLEURA: No opacities, masses or pneumothorax. No pleural effusion. MEDIASTINUM AND HILAR STRUCTURES: No masses or contour abnormalities. HEART AND VASCULAR STRUCTURES: Heart normal size. No evidence for failure. BONES: No acute findings. HARDWARE: Surgical clips in the upper left abdomen. OTHER: No other significant finding. IMPRESSION: NO ACUTE RADIOGRAPHIC FINDING IN THE CHEST. TECHNICAL DOCUMENTATION: JOB ID: [id number] 2010 [employer]- All Rights Reserved Reading location - IP/workstation name: [email or web address]
[2019-12-28 12:41] LABS: FREE T3 3.18 pg/mL (2.77-5.27); FREE T4 (FREE THYROXINE) 1.91 ng/dL (0.78-2.19)
[2019-12-28 12:55] LABS: THYROID STIMULATING HORMONE 1.37 uIU/mL (0.47-4.68)
--- NOTE | 2019-12-28 13:06 | ER Document Report ---
Entered by DEVORAH GAXIOLA SCRIBE 12/28/19 1218 Acting as scribe for:DEBRA FARRIS MD ED General - General Chief Complaint: Irregular Pulse Stated Complaint: IRREGULAR HEART RATE Time Seen by Provider: 12/28/19 11:26 Primary Care Provider: JADEN MOSLEY MD [ACTIVE PROVISIONAL STAFF] - Follow up as needed FRANCINE RICHEY DO [ASSOCIATE] - Follow up as needed [facility] - Follow up in 3-5 days Mode of Arrival: Ambulatory Information source: Patient Notes: This 54 year old male patient presents to the emergency department today with complaints of throat discomfort and fairly new onset atrial fibrillation. Leo nt states that his Apple Watch has been telling him that he was in atrial fibrillation for the last few months but it was never formally diagnosed until today. [facility] indicating this and they told him "it's just a watch" and did not seem to be worried. He went to [facility] today to be seen for his throat discomfort and an EKG confirmed atrial fibrillation. Patient describes the throat discomfort as if something is stuck, which has been present for about 2 1/2 weeks. Patient states it seemed to be getting better but then this morning he felt like when he was taking his morning medicine it "got worse". Patient denies any throat pain, fevers, or change in taste. TRAVEL OUTSIDE OF THE [place] IN LAST 30 DAYS: No - Related Data Allergies/Adverse Reactions: lisinopril Allergy (Verified 12/28/19 11:36) Past Medical History - General Information source: Patient - Social History Smoking Status: Never Smoker Cigarette use (# per day): No Chew tobacco use (# tins/day): No Frequency of alcohol use: None Drug Abuse: None Lives with: Family Family History: Reviewed & Not Pertinent, Hypertension - Past Medical History Cardiac Medical History: Reports: Hx Congestive Heart Failure, Hx Hypercholesterolemia, Hx Hypertension Pulmonary Medical History: Reports: Hx Bronchitis, Hx Pneumonia Neurological Medical History: Reports: Hx Migraine Endocrine Medical History: Reports: Hx Diabetes Mellitus Type 2 Musculoskeletal Medical History: Reports Hx Arthritis Psychiatric Medical History: Reports: Hx Depression Past Surgical History: Reports: Hx Orthopedic Surgery, Other - Nephrectomy - Immunizations Hx Diphtheria, Pertussis, Tetanus Vaccination: Yes Review of Systems - Review of Systems Constitutional: denies: Fever EENT: Other - throat pressure. denies: Throat pain Cardiovascular: See HPI, Palpitations - irregularly irregular Respiratory: No symptoms reported Gastrointestinal: No symptoms reported Genitourinary: No symptoms reported Male Genitourinary: No symptoms reported Musculoskeletal: No symptoms reported Skin: No symptoms reported Hematologic/Lymphatic: No symptoms reported Neurological/Psychological: No symptoms reported -: Yes All other systems reviewed and negative Physical Exam - Vital signs Vitals: Temp Pulse Resp BP Pulse Ox 98.6 F 67 21 H 150/94 H 99 12/28/19 11:23 12/28/19 11:23 12/28/19 11:23 12/28/19 11:23 12/28/19 11:23 - Notes Notes: Physical Exam: General: Alert, appears well. HEENT: Normocephalic. Atraumatic. PERRL. Extraocular movements intact. Oropharynx clear. Posterior oropharynx erythema, tonsils are beefy and red. Neck: Supple. Non-tender. Respiratory: No respiratory distress. Clear and equal breath sounds bilaterally. Cardiovascular: Irregularly irregular. Abdominal: Morbidly obese. Non-tender. No distension. Normal Bowel Sounds. Back: No gross abnormalities. Extremities: Moves all four extremities. Upper extremities: Normal inspection. Normal ROM. Lower extremities: Normal inspection. No edema. Normal ROM. Neurological: Normal cognition. AAOx4. Normal speech. Psychological: Normal affect. Normal Mood. Skin: Warm. Dry. Normal color. Course - Re-evaluation Re-evalutation: 12/28/19 14:27 Patient has had atrial fibrillation apparently for a few months. He is on several blood pressure medications, none are beta-blockers. His rate is well controlled at this time being 70. He has no chest complaints. He does report a sensation of swelling in his throat for the past 2-1/2 weeks, that got better and then felt worse this morning. Physical examination does not show any abnormalities in his throat other than some erythema to his tonsillar tissue, soft palate, and uvula. He had a negative rapid strep. He will be encouraged to follow-up with [facility] or with the [facility] about his sensation of throat swelling, and recommended to take 1 baby aspirin daily until he can [facility] for [facility] of his [facility] fibrillation. He was also advised to stop taking the iron tablets due to his hemoglobin being over 14 at this time. His renal insufficiency appears to be slowly worsening based on prior lab work. - Vital Signs Vital signs: Temp Pulse Resp BP Pulse Ox 98.6 F 67 21 H 150/94 H 98 12/28/19 11:23 12/28/19 11:23 12/28/19 11:23 12/28/19 11:23 12/28/19 11:29 - Laboratory Result Diagrams: 12/28/19 11:42 12/28/19 11:42 Laboratory results interpreted by me: 12/28/19 12/28/19 12/28/19 11:42 11:42 11:42 RDW 14.3 H [place] % (Auto) 18.3 H BUN 28 H Creatinine 2.50 H Est GFR ( Amer) 33 L Est GFR (MDRD) Non-Af 27 L Glucose 114 H Magnesium 2.4 H Total Bilirubin 2.0 H Creatine Kinase 224 H Urine Glucose (UA) >=500 H - Diagnostic Test Radiology reviewed: Image reviewed, Reports reviewed - Chest x-ray shows no acute radiographic abnormalities - EKG Interpretation by Me EKG shows normal: [place], Intervals, QRS Complexes. abnormal: ST-T Waves - Minim al ST depression in the lateral leads Rate: Normal - 70 [place]/QRS: IVCD When compared to previous EKG there are: Changes noted - Prior EKG from 3 years ago was a sinus bradycardia. Discharge - Discharge Clinical Impression: Sensation of swollen throat Atrial fibrillation Qualifiers: Atrial fibrillation type: unspecified Qualified Code(s): I48.91 - Unspecified atrial fibrillation Condition: Stable Disposition: HOME, SELF-CARE Additional Instructions: Atrial Fibrillation: Atrial fibrillation is an abnormal heart rhythm, caused by irregular electrical circuits in the upper heart chamber. It can be caused by heart valve disease, hardening of the arteries, or metabolic problems such as thyroid disease, or may occur without a clear cause. Atrial fibrillation may occur only occasionally, or may be chronic. Atrial fibrillation often results in a very fast heart rate, with palpitations, lightheadedness, and shortness of breath. Treatment is to slow the abnormally fast rate, and to convert the rhythm back to normal, if possible. Many patients stay in atrial fibrillation for years without symptoms or complications. Your doctor will decide whether you can be converted back to a normal heart rhythm. Contact the doctor or emergency medical system at once if you develop chest pain, shortness of breath, or severe lightheadedness, or if you develop any disturbance of consciousness, problems with speech, or localized weakness. Your EKG today shows that you are in an atrial fibrillation rhythm. Your rate is well controlled at this time. You should continue your regular medications. Take 1 baby aspirin once daily to reduce the risk of stroke. Follow-up with the [facility] or with Dr. Mosley the local dent remover communications manager to manage her atrial fibrillation. No explanation for the sensation of swelling in the throat was found on exam today. [facility] or with Dr. Richey at [facility] for further evaluation of the throat swelling sensation. RETURN TO THE EMERGENCY ROOM IF ANY NEW OR WORSENING SYMPTOMS. Referrals: [facility]] - Follow up in 3-5 days JADEN MOSLEY MD [ACTIVE PROVISIONAL STAFF] - Follow up as needed FRNACINE RICHEY DO [ASSOCIATE] - Follow up as needed I personally performed the services described in the documentation, reviewed and edited the documentation which was dictated to the scribe in my presence, and it accurately records my words and actions.
[2019-12-28 14:53] VITALS: BP 118/86
--- NOTE | 2019-12-29 01:08 | EKG REPORT ---
SEVERITY:- ABNORMAL ECG - ATRIAL FIBRILLATION, V-RATE 56-81 NONSPECIFIC INTRAVENTRICULAR CONDUCTION DELAY MINIMAL ST DEPRESSION, LATERAL LEADS : Confirmed by: Fadi Silva 29-Dec-2019 01:08:12
== END 2019-12-28 14:57 | disposition home or self-care (01) ==
LOC: ER 11:15
DX: I48.91 Unspecified atrial fibrillation (principal); R09.89 Other specified symptoms and signs involving the circulatory and respiratory systems; I10 Essential (primary) hypertension; E11.9 Type 2 diabetes mellitus without complications; Z88.8 Allergy status to other drugs, medicaments and biological substances
CPT/HCPCS: 36415; 71046; 80053; 81001; 82550; 83735; 84439; 84443; 84481; 84484; 85025; 85610; 87070; 87880; 93005; 93010; 99285

== ENCOUNTER 2020-01-07 09:14 | Emergency (ER) | payer OTHER, MEDICARE ==
[2020-01-07 10:00] VITALS: BP 132/93
[2020-01-07 10:12] LABS: ABSOLUTE BASOPHILS # (AUTO) 0.1 10^3/uL (0.0-0.2); ABSOLUTE EOSINOPHILS # (AUTO) 0.1 10^3/uL (0.0-0.6); ABSOLUTE LYMPHOCYTES (AUTO) 1.3 10^3/uL (0.5-4.7); ABSOLUTE NEUT (AUTO) 3.7 10^3/uL (1.7-8.2); BASOPHILS % (AUTO) 1.3 % (0-2); EOSINOPHILS % (AUTO) 2.3 % (0-6); HEMATOCRIT 40.2 % (37.9-51.0); HEMOGLOBIN 13.5 g/dL (13.5-17.0); LYMPHOCYTES % (AUTO) 21.1 % (13-45); MEAN CORPUSCULAR HEMOGLOBIN 31.9 pg (27.0-33.4); MEAN CORPUSCULAR HGB CONC 33.5 g/dL (32.0-36.0); MEAN CORPUSCULAR VOLUME 95 fl (80-97); MONOCYTES % (AUTO) 16.2 % (3-13); PLATELET COUNT 182 10^3/uL (150-450); RED BLOOD COUNT 4.22 10^6/uL (4.35-5.55); RED CELL DISTRIBUTION WIDTH 14.8 % (11.5-14.0); SEGMENTED NEUTROPHILS % (AUTO) 59.1 % (42-78); TOTAL CELLS COUNTED % (AUTO) 100 %; WHITE BLOOD COUNT 6.2 10^3/uL (4.0-10.5)
[2020-01-07 10:13] LABS: APPEARANCE,URINE CLEAR; BILIRUBIN,URINE NEGATIVE (NEGATIVE); COLOR,URINE STRAW; GLUCOSE, URINE >=500 mg/dL (NEGATIVE); KETONES,URINE NEGATIVE (NEGATIVE); LEUKOCYTE ESTERASE,URINE NEGATIVE (NEGATIVE); NITRITE,URINE NEGATIVE (NEGATIVE); PROTEIN,URINE NEGATIVE (NEGATIVE); URINE SPECIFIC GRAVITY 1.007; UROBILINOGEN,URINE NEGATIVE mg/dL (<2.0)
[2020-01-07 10:29] LABS: ALBUMIN 3.6 g/dL (3.5-5.0); ALKALINE PHOSPHATASE 53 U/L (38-126); ANION GAP 6 (5-19); ASPARTATE AMINO TRANSFERASE 25 U/L (17-59); BILIRUBIN,DIRECT 0.1 mg/dL (0.0-0.4); BILIRUBIN,TOTAL 1.3 mg/dL (0.2-1.3); BLOOD UREA NITROGEN 29 mg/dL (7-20); CALCIUM 8.9 mg/dL (8.4-10.2); CARBON DIOXIDE 25 mmol/L (22-30); CHLORIDE 106 mmol/L (98-107); GLUCOSE 123 mg/dL (75-110); POTASSIUM 3.9 mmol/L (3.6-5.0); TOTAL PROTEIN 7.4 g/dL (6.3-8.2)
--- NOTE | 2020-01-07 10:57 | ER Document Report ---
ED General - General Chief Complaint: Rectal Bleeding Stated Complaint: BLOODY STOOL Time Seen by Provider: 01/07/20 10:16 Primary Care Provider: ATILIO SONG [Primary Care Provider] - Follow up as needed Notes: 54-year-old male who was recently started on Xarelto for atrial fibrillation presents emergency department complaining of rectal bleeding starting on . States he had a bowel movement and then noticed blood on the toilet paper. There was no pain at the time and denies any constipation. States that yesterday morning when he used to the toilet to have a bowel movement he noticed that the water was red and then there was some blood clots on the toilet tissue. Admits a history of hemorrhoids, denies bleeding this heavily before. Denies trauma to the rectum or inserting anything into his rectum. Denies any pain around his rectum or any fevers. Denies any blood in his underwear. TRAVEL OUTSIDE OF THE [place] IN LAST 30 DAYS: No - Related Data Allergies/Adverse Reactions: lisinopril Allergy (Verified 01/07/20 09:30) Home Medications: clonidine, xarelto Past Medical History - Social History Smoking Status: Never Smoker Frequency of alcohol use: None Drug Abuse: None Family History: Hypertension - Past Medical History Cardiac Medical History: Reports: Hx Atrial Fibrillation, Hx Congestive Heart Failure, Hx Hypercholesterolemia, Hx Hypertension Pulmonary Medical History: Reports: Hx Bronchitis, Hx Pneumonia Neurological Medical History: Reports: Hx Migraine Endocrine Medical History: Reports: Hx Diabetes Mellitus Type 2 Renal/ Medical History: Denies: Hx Peritoneal Dialysis Musculoskeletal Medical History: Reports Hx Arthritis Psychiatric Medical History: Reports: Hx Depression Past Surgical History: Reports: Hx Orthopedic Surgery - bilateral knee replacements in 2019, Other - Nephrectomy - Immunizations Hx Diphtheria, Pertussis, Tetanus Vaccination: Yes Review of Systems - Review of Systems Constitutional: No symptoms reported Gastrointestinal: See HPI, Rectal bleeding -: Yes All other systems reviewed and negative Physical Exam - Vital signs Vitals: Temp Pulse Resp BP Pulse Ox 97.8 F 78 16 127/74 H 99 01/07/20 09:20 01/07/20 09:20 01/07/20 09:20 01/07/20 09:20 01/07/20 09:20 Interpretation: Normal - Notes Notes: GENERAL: Alert, interacts well. No acute distress. HEAD: Normocephalic, atraumatic EYES: Pupils equal, round and reactive to light, extraocular movements intact. ENT: Oral mucosa moist, tongue midline. NECK: Full range of motion, supple, trachea midline. LUNGS: Clear to auscultation bilaterally, no wheezes, rales or rhonchi, no respiratory distress. HEART: Regular rate and rhythm, no murmurs, gallops, rubs. ABDOMEN: Soft, nontender, nondistended, bowel sounds present in all 4 quadrants. EXTREMITIES: Moves all 4 extremities spontaneously, no cyanosis. NEUROLOGICAL: Alert and oriented x3, normal speech. PSYCH: Normal mood, normal affect. SKIN: Warm, Dry, normal turgor. RECTAL: Fissure at approximately the 3 o'clock position, no active bleeding at this time, no hemorrhoids, nontender to palpation. Course - Re-evaluation Re-evalutation: 01/07/20 10:54 CBC does not show any anemia 01/07/20 10:55 CMP shows chronic renal failure, lipase normal, urinalysis is unremarkable. Rectal examination reveals fissure without any active bleeding. This is unlikely to cause life-threatening bleeding. Counseled patient on using stool softeners, cleansing self with chai-care bottle versus bidet and really only v rosalinda gentle using toilet paper when necessary. This is expected to heal well. Discharged home. - Vital Signs Vital signs: Temp Pulse Resp BP Pulse Ox 97.8 F 78 16 132/93 H 99 01/07/20 09:20 01/07/20 09:20 01/07/20 09:45 01/07/20 09:45 01/07/20 09:45 - Laboratory Result Diagrams: 01/07/20 09:53 01/07/20 09:53 Laboratory results interpreted by me: 01/07/20 01/07/20 01/07/20 09:53 09:53 09:53 RBC 4.22 L RDW 14.8 H [place] % (Auto) 16.2 H BUN 29 H Creatinine 2.45 H Est GFR ( Amer) 33 L Est GFR (MDRD) Non-Af 28 L Glucose 123 H Urine Glucose (UA) >=500 H Discharge - Discharge Clinical Impression: Anal fissure Condition: Stable Disposition: HOME, SELF-CARE Additional Instructions: Anal Fissure You have a split in the tissues of the anus, called an anal fissure. This may be due to constipation, or chronic anal irritation. The fissure causes pain during bowel movements. It may bleed when you pass stool. Treat the fissure with warm sitz baths three or four times a day. Clean the anal area carefully -- special cleansing pads (Tucks) may be helpful. Sometimes prescription suppositories are helpful in reducing pain and inflammation. A stool softener (such as Metamucil) will make bowel movements less traumatic. Eat a diet high in fiber (fruits, whole grains), and drink plenty of water. See your doctor if there is profuse bleeding, increasing pain, an enlarging mass, or fever -- or if the symptoms do not resolve after treatment. Please return if you have bleeding into your underwear, if you have large clots in the toilet rather than just some clots on the toilet paper or any new or concerning symptoms. [facility]errals: [facility] - Follow up as needed
== END 2020-01-07 11:21 | disposition home or self-care (01) ==
LOC: ER 09:14
DX: K60.2 Anal fissure, unspecified (principal); I12.9 Hypertensive chronic kidney disease with stage 1 through stage 4 chronic kidney disease, or unspecified chronic kidney disease; E11.22 Type 2 diabetes mellitus with diabetic chronic kidney disease; N18.9 Chronic kidney disease, unspecified; I48.91 Unspecified atrial fibrillation; Z79.899 Other long term (current) drug therapy
CPT/HCPCS: 36415; 80053; 81001; 83690; 85025; 99283

== ENCOUNTER 2020-06-13 13:32 | Emergency (ER) | payer OTHER, MEDICARE ==
--- NOTE | 2020-06-13 15:04 | ER Document Report ---
ED Medical Screen (RME) - General Stated Complaint: POSSIBLE LOW BLOOD PRESSURE Time Seen by Provider: 06/13/20 14:52 Primary Care Provider: ATILIO SONG [Primary Care Provider] - Follow up as needed TRAVEL OUTSIDE OF THE [place] IN LAST 30 DAYS: No - HPI Patient complains to provider of: Low blood pressure Notes: 06/13/20 15:03 Patient here with complaints of low blood pressure. He states that over the weekend he had blood pressures with systolics in the 90s. [facility]ip[facility]. He is currently on hydrochlorothiazide, losartan, clonidine patch which she switched yesterday and takes Xarelto for A. fib. States that this morning he woke up and did not feel right although he is unable to give me any more information regarding that. He denies any dizziness, syncope, chest pain or shortness of breath. He took his blood pressure and had systolic blood pressures in the mid 80s. He called the [facility] who directed him to the emergency department. Exam: No distress, nontoxic appearing. Lungs clear and equal throughout. Heart sounds normal. Nonfocal neuro exam. An initial examination was made on the patient as part of the triage process, and it was determined a more comprehensive evaluation was necessary. Initial orders were placed and patient was transferred to another provider in the ED who assumed care and finished evaluation and plan. - Related Data Allergies/Adverse Reactions: lisinopril Allergy (Verified 01/07/20 09:30) Past Medical History - Past Medical History Cardiac Medical History: Reports: Hx Atrial Fibrillation, Hx Congestive Heart Failure, Hx Hypercholesterolemia, Hx Hypertension Pulmonary Medical History: Reports: Hx Bronchitis, Hx Pneumonia Neurological Medical History: Reports: Hx Migraine Endocrine Medical History: Reports: Hx Diabetes Mellitus Type 2 Renal/ Medical History: Denies: Hx Peritoneal Dialysis Musculoskeltal Medical History: Reports Hx Arthritis Psychiatric Medical History: Reports: Hx Depression Past Surgical History: Reports: Hx Orthopedic Surgery - bilateral knee replacements in 2019, Other - Nephrectomy - Immunizations Hx Diphtheria, Pertussis, Tetanus Vaccination: Yes Physical Exam - Vital signs Vitals: Temp Pulse Resp BP Pulse Ox 97.3 F 72 16 123/88 H 97 06/13/20 13:36 06/13/20 13:36 06/13/20 13:36 06/13/20 13:36 06/13/20 13:36 Course - Vital Signs Vital signs: Temp Pulse Resp BP Pulse Ox 97.3 F 72 16 123/88 H 97 06/13/20 13:36 06/13/20 13:36 06/13/20 13:36 06/13/20 13:36 06/13/20 13:36 Doctor's Discharge - Discharge [facility]errals: [facility] - Follow up as needed
--- NOTE | 2020-06-13 15:46 | RADIOLOGY REPORT (SQ) ---
EXAM DESCRIPTION: CHEST 2 VIEWS IMAGES COMPLETED DATE/TIME: 06/13/2020 3:11 pm REASON FOR STUDY: low BP COMPARISON: 12/28/2019 EXAM PARAMETERS: NUMBER OF VIEWS: two views TECHNIQUE: Digital Frontal and Lateral radiographic views of the chest acquired. RADIATION DOSE: NA LIMITATIONS: none FINDINGS: LUNGS AND PLEURA: No opacities, masses or pneumothorax. No pleural effusion. MEDIASTINUM AND HILAR STRUCTURES: No masses or contour abnormalities. HEART AND VASCULAR STRUCTURES: Stable heart size. No evidence for failure. BONES: No acute findings. HARDWARE: None in the chest. OTHER: No other significant finding. IMPRESSION: NO ACUTE RADIOGRAPHIC FINDING IN THE CHEST. TECHNICAL DOCUMENTATION: JOB ID: [id number] 2010 [employer]- All Rights Reserved Reading location - IP/workstation name: [email or web address]
[2020-06-13 15:50] LABS: ABSOLUTE BASOPHILS # (AUTO) 0.1 10^3/uL (0.0-0.2); ABSOLUTE EOSINOPHILS # (AUTO) 0.1 10^3/uL (0.0-0.6); ABSOLUTE LYMPHOCYTES (AUTO) 1.9 10^3/uL (0.5-4.7); ABSOLUTE MONOCYTES (AUTO) 1.2 10^3/uL (0.1-1.4); ABSOLUTE NEUT (AUTO) 4.3 10^3/uL (1.7-8.2); BASOPHILS % (AUTO) 0.9 % (0-2); EOSINOPHILS % (AUTO) 1.5 % (0-6); HEMATOCRIT 40.5 % (37.9-51.0); HEMOGLOBIN 13.7 g/dL (13.5-17.0); LYMPHOCYTES % (AUTO) 25.6 % (13-45); MEAN CORPUSCULAR HEMOGLOBIN 31.4 pg (27.0-33.4); MEAN CORPUSCULAR HGB CONC 33.8 g/dL (32.0-36.0); MEAN CORPUSCULAR VOLUME 93 fl (80-97); MONOCYTES % (AUTO) 15.7 % (3-13); PLATELET COUNT 199 10^3/uL (150-450); RED BLOOD COUNT 4.36 10^6/uL (4.35-5.55); RED CELL DISTRIBUTION WIDTH 14.7 % (11.5-14.0); SEGMENTED NEUTROPHILS % (AUTO) 56.3 % (42-78); TOTAL CELLS COUNTED % (AUTO) 100 %; WHITE BLOOD COUNT 7.6 10^3/uL (4.0-10.5)
[2020-06-13 16:13] LABS: ALBUMIN 3.6 g/dL (3.5-5.0); ALKALINE PHOSPHATASE 50 U/L (38-126); ANION GAP 5 (5-19); ASPARTATE AMINO TRANSFERASE 21 U/L (17-59); BILIRUBIN,DIRECT 0.2 mg/dL (0.0-0.4); BILIRUBIN,TOTAL 1.4 mg/dL (0.2-1.3); BLOOD UREA NITROGEN 25 mg/dL (7-20); CALCIUM 8.9 mg/dL (8.4-10.2); CARBON DIOXIDE 30 mmol/L (22-30); CHLORIDE 102 mmol/L (98-107); GLUCOSE 109 mg/dL (75-110); POTASSIUM 3.6 mmol/L (3.6-5.0); TOTAL PROTEIN 7.3 g/dL (6.3-8.2)
[2020-06-13 16:18] LABS: APPEARANCE,URINE CLEAR; BILIRUBIN,URINE NEGATIVE (NEGATIVE); COLOR,URINE STRAW; GLUCOSE, URINE >=500 mg/dL (NEGATIVE); KETONES,URINE NEGATIVE (NEGATIVE); LEUKOCYTE ESTERASE,URINE NEGATIVE (NEGATIVE); NITRITE,URINE NEGATIVE (NEGATIVE); PROTEIN,URINE NEGATIVE (NEGATIVE); URINE SPECIFIC GRAVITY 1.002; UROBILINOGEN,URINE NEGATIVE mg/dL (<2.0)
--- NOTE | 2020-06-13 18:18 | ER Document Report ---
ED General - General Stated Complaint: POSSIBLE LOW BLOOD PRESSURE Time Seen by Provider: 06/13/20 14:52 Primary Care Provider: [facility] [Primary [facility] Provider] - Follow up as needed TRAVEL OUTSIDE OF THE [place] IN LAST 30 DAYS: No - HPI Notes: Chief complaint: Low blood pressure History of present illness: 54-year-old male followed by the [facility] with history of hypertension, chronic atrial fibrillation, diabetes mellitus type 2 and stage III kidney disease with baseline creatinine about 2.4 felt slightly lightheaded yesterday and had a blood pressure at home of around 90/60. He spoke with his physician at the [facility] by telephone and was instructed to stop taking his amlodipine. Blood pressures again today have been up and down but intermittently as low as around 90/60. He feels well at this time with no specific complaints. He is not having any shortness of breath, nausea, vomiting, diarrhea or fever. He denies any chest pain. - Related Data Allergies/Adverse Reactions: lisinopril Allergy (Verified 01/07/20 09:30) Home Medications: amlodipine. HCTZ. losartan. clonidine patch. Past Medical History - General Information source: Patient - Social History Smoking Status: Unknown if Ever Smoked Family History: Hypertension Patient has homicidal ideation: No - Past Medical History Cardiac Medical History: Reports: Hx Atrial Fibrillation, Hx Congestive Heart Failure, Hx Hypercholesterolemia, Hx Hypertension Pulmonary Medical History: Reports: Hx Bronchitis, Hx Pneumonia Neurological Medical History: Reports: Hx Migraine Endocrine Medical History: Reports: Hx Diabetes Mellitus Type 2 Renal/ Medical History: Denies: Hx Peritoneal Dialysis Musculoskeletal Medical History: Reports Hx Arthritis Psychiatric Medical History: Reports: Hx Depression Past Surgical History: Reports: Hx Orthopedic Surgery - bilateral knee replacements in 2019, Other - Nephrectomy - Immunizations Hx Diphtheria, Pertussis, Tetanus Vaccination: Yes Review of Systems - Review of Systems Notes: Constitutional: Negative for fever. HENT: Negative for sore throat. Eyes: Negative for visual changes. Cardiovascular: Negative for chest pain. Respiratory: Negative for shortness of breath. Gastrointestinal: Negative for abdominal pain, vomiting or diarrhea. Genitourinary: Negative for dysuria. Musculoskeletal: Negative for back pain. Skin: Negative for rash. Neurological: Negative for headaches, weakness or numbness. 10 point ROS negative except as marked above and in HPI. Physical Exam - Vital signs Vitals: Temp Pulse Resp BP Pulse Ox 97.3 F 72 16 123/88 H 97 06/13/20 13:36 06/13/20 13:36 06/13/20 13:36 06/13/20 13:36 06/13/20 13:36 - Notes Notes: GENERAL: Obese male approximately stated age appearing in no acute distress. SKIN: Good turgor no rashes. HEAD: Normocephalic atraumatic. EYES: PERRLA. EOMI. Conjunctivae and sclerae clear. EARS: CANALS AND TMS CLEAR. NOSE: CLEAR. MOUTH: Moist mucosa. Good dentition. No stridor or edema. No drooling. NECK: Supple. No masses or thyromegaly. No adenopathy. Carotids 2+ without bruits. No JVD. BACK: Symmetrical without tenderness. CHEST: Respirations unlabored. Breath sounds clear and symmetrical. HEART: Irregularly regular rhythm. No murmur gallop or rub. ABDOMEN: Obese. Soft nontender without masses, organomegaly or rebound. Bowel sounds normally active. No bruits. GENITALIA: Deferred. EXTREMITIES: No edema. No calf tenderness. Cap refill less than 1.5 seconds. Dorsalis pedis and posterior tibial pulses 3+ and symmetrical. NEUROLOGICAL: GCS 15. Alert and oriented x3. Normal gait. Fluent speech. Cranial nerves II through XII intact. Sensorimotor and cerebellar normal. Normal tone. PSYCHIATRIC: Appropriate affect. Course - Re-evaluation Re-evalutation: 06/13/20 18:53 This man's blood pressure is good at this time and he is not orthostatic. He has no significant abnormalities on physical exam other than obesity. He has renal insufficiency with an elevated creatinine which is consistent with his baseline. His chemistry profile is otherwise unremarkable. His urinalysis is normal. His CBC shows no significant abnormalities. His chest x-ray is normal. His EKG shows pre-existing atrial fib with rate controlled and no acute ST/T wave changes. Spoke with patient regarding his blood pressure and told him to remain off amlodipine but continue all of his other usual medications. I encouraged him to return here for any new or worsening problems and otherwise to contact [facility] to [facility] a [facility]up [facility] visit preferably within the next 1 week. Findings, clinical impression and plan of treatment have been discussed with patient/family. Understanding of current findings and recommendations has been acknowledged by them and there is agreement regarding disposition and follow-up. - Vital Signs Vital signs: Temp Pulse Resp BP Pulse Ox 97.3 F 72 16 123/88 H 97 06/13/20 13:36 06/13/20 13:36 06/13/20 13:36 06/13/20 13:36 06/13/20 13:36 - Laboratory Results Result Diagrams: 06/13/20 15:30 06/13/20 15:30 Laboratory Results Interpreted: 06/13/20 06/13/20 06/13/20 15:30 15:30 15:55 RDW 14.7 H [place] % (Auto) 15.7 H Sodium 136.8 L BUN 25 H Creatinine 2.47 H Est GFR ( Amer) 33 L Est GFR (MDRD) Non-Af 27 L Total Bilirubin 1.4 H Urine Glucose (UA) >=500 H Critical Laboratory Results Reviewed: Yes Attending or Supervising Physician who Reviewed Labs: NADRIA CHOI - Radiology Results Radiology Results Interpreted: 06/13/20 18:18 Chest X-Ray 06/13/20 14:59 IMPRESSION: NO ACUTE RADIOGRAPHIC FINDING IN THE CHEST. Critical Radiology Results Reviewed: No Critical Results - EKG Interpretation by Me Additional EKG results interpreted by me: 06/13/20 18:18 Twelve-lead EKG reviewed by me contemporaneously: 1519 hrs. Indication for study: Atrial fibrillation Rhythm: Atrial fibrillation Rate: 62 Intervals: Normal intervals QRS axis: -[address]/T wave changes: Nonspecific Comparison with prior tracing: Unchanged Interpretation: Rate controlled atrial fibrillation with nonspecific T wave c hanges Discharge - Discharge Clinical Impression: Essential hypertension Condition: Stable Disposition: HOME, SELF-CARE Additional Instructions: Do not take any more of the amlodipine. Stay on all of your other medications as previously prescribed. You can return to the emergency department for any new or worsening symptoms. You were otherwise encouraged to contact your physician at the [facility] for follow-up visit within the next 1 week. Referrals: [facility] [[facility]] - Follow up as needed
[2020-06-13 19:13] VITALS: BP 122/80
--- NOTE | 2020-06-13 23:42 | EKG REPORT ---
SEVERITY:- ABNORMAL ECG - ATRIAL FIBRILLATION, V-RATE 48-78 NONSPECIFIC INTRAVENTRICULAR CONDUCTION DELAY : Confirmed by: Fadi Silva 13-Jun-2020 23:42:12
== END 2020-06-13 19:13 | disposition home or self-care (01) ==
LOC: ER 13:32
DX: I95.9 Hypotension, unspecified (principal); E66.9 Obesity, unspecified; E11.22 Type 2 diabetes mellitus with diabetic chronic kidney disease; I13.0 Hypertensive heart and chronic kidney disease with heart failure and stage 1 through stage 4 chronic kidney disease, or unspecified chronic kidney disease; N18.30 Chronic kidney disease, stage 3 unspecified; E78.00 Pure hypercholesterolemia, unspecified; I48.91 Unspecified atrial fibrillation; I50.9 Heart failure, unspecified; Z96.653 Presence of artificial knee joint, bilateral
CPT/HCPCS: 36415; 71046; 80053; 81001; 83735; 84484; 85025; 93005; 93010; 99285